=== PATIENT | male | born 1980 | race Caucasian/White ===

== ENCOUNTER → 2017-06-04 | Outpatient (CLI) | payer OTHER ==
[~2017-06-04] VITALS: Ht 170.2 cm; Wt 90.7 kg
[~2017-06-04] MED LIST: ATORVASTATIN CA40 MG PO; FLOMAX0.4 MG PO; FOLBIC RF TABL1 EACH PO; HYDROCODON-ACE1 EAC7 PO; L-LYSINE500 M1 PO; MINOCIN100 MG PO; REQUIP 0.25 M0.25 M1 PO; WELLBUTRIN 100100 MG PO
== END ==
LOC: LITH 05:39
DX: N20.0 Calculus of kidney (principal)